=== PATIENT | male | born 1945 | race Caucasian/White ===

== ENCOUNTER 2017-02-11 16:19 | Observation (INO) ==
[2017-02-11] MEDS ORDERED: Aspirin 81 MG TAB.CHEW PO ONE (17:56)
[2017-02-11] MEDS ORDERED: 0.9 % Sodium Chloride 1,000 ML IVC ONE ×2 (17:57)
[2017-02-11 18:37] LABS: Basophils # 0.1 K/mcL (0.0-0.2); Basophils % 0.8 %; Hematocrit 48.9 % (37.5-50.1); Hemoglobin 16.2 g/dL (12.9-16.9); Immature Granulocytes % 0.4 % (0-4); Lymphocytes # 1.1 K/mcL (0.6-4.6); Lymphocytes % 9.9 %; Mean Corpuscular HGB Conc 33.1 g/dL (31.6-35.5); Mean Corpuscular Hemoglobin 28.5 pg (28.0-33.3); Mean Corpuscular Volume 85.9 fL (83.0-100.0); Mean Platelet Volume 10.1 fL (9.4-12.4); Monocytes # 0.9 K/mcL (0.0-1.3); Monocytes % 8.9 %; Neutrophils # 8.5 K/mcL (1.6-8.9); Platelet Count 218 K/mcL (140-400); Red Blood Count 5.69 M/mcL (4.19-5.50); Red Cell Distribution Width 13.9 % (11.5-14.5)
[2017-02-11 18:44] LABS: VBG HCO3 26 mEq/L (21-27); VBG PCO2 48 mmHg (41-51); VBG PH 7.34 pH Units (7.32-7.42); VBG PO2 26 mmHg (25-50)
[2017-02-11 18:57] LABS: Potassium 5.3 mEq/L (3.5-5.1)
[2017-02-11] MEDS ORDERED: Famotidine 20 MG/2 ML VIAL IVP ONE (19:07)
[2017-02-11] MEDS ORDERED: Nitroglycerin 0.4 MG TAB.SUBL SL PRN (19:23)
--- NOTE | 2017-02-11 19:26 | Emergency Department Note ---
Disposition Clinical Impression: Influenza A, Hyperkalemia, Elevated troponin I level, Dehydration Chest pain Qualifiers: Chest pain type: precordial pain Qualified Code(s): R07.2 - Precordial pain Disposition: Admitted As Inpatient Condition: Serious Time of Disposition: 22:00 Chest Pain HPI - General Chief Complaint: ED Chest Pain Stated Complaint: CP/Flu like Symptoms Time Seen by Provider: 02/11/17 17:16 Source: patient Limitations: no limitations Vital Signs Reviewed: Yes Nursing Notes Reviewed: Yes - History of Present Illness HPI Narrative: 71-year-old male who complains of extreme fatigue, generalized weakness and chest pain/chest tightness 2 days. Patient states symptoms came on rapidly and has been unable to take care of himself at home. He has not eaten or drank in that time. Patient states he has felt feverish Severity scale (1-10): 4 - Related Data Home Medications Medication Instructions Recorded Confirmed Allopurinol [Zyloprim] 100 mg PO DAILY 01/20/16 02/11/17 Amlodipine Besylate 10 mg PO DAILY 01/20/16 02/11/17 Aspirin 81 mg PO DAILY 01/20/16 02/11/17 Furosemide [Lasix] 40 mg PO QAM 01/20/16 02/11/17 GlipiZIDE XL (24 HR) [Glucotrol XL] 10 mg PO 0800 01/20/16 02/11/17 Metformin HCl [Glucophage Xr] 750 mg PO DAILY 01/20/16 02/11/17 Omeprazole [PriLOSEC] 40 mg PO DAILY 01/20/16 02/11/17 Pravastatin Sodium [Pravachol] 20 mg PO HS 01/20/16 02/11/17 Telmisartan [Micardis] 80 mg PO DAILY 01/20/16 02/11/17 rOPINIRole [Requip] 1 mg PO HS 01/20/16 02/11/17 Cholecalciferol (Vitamin D3) 5,000 mg PO DAILY 01/18/17 02/11/17 [Vitamin D] Colesevelam HCl [Welchol] 3.75 gm PO DAILY 02/11/17 02/11/17 Exenatide Microspheres [Bydureon 2 mg SQ MO 02/11/17 02/11/17 Pen] Metoprolol XL (24 HR) Succ [Toprol 50 mg PO DAILY 02/11/17 02/11/17 XL] Allergies Allergy/AdvReac Type Severity Reaction Status Date / Time No Known Allergies Allergy Verified 02/11/17 16:30 All systems ED: reviewed and negative except as stated. Review of Systems: As Per HPI Constitutional: Reports: fever ENT ED: Reports: congestion Cardiovascular: Reports: chest pain Respiratory: Reports: cough Musculoskeletal: Reports: myalgia Neurological: Reports: headache Endocrine: Reports: fatigue Chest Pain PMH - Past Medical History Medical history: Reports: coronary artery disease, diabetes, GERD, hypertension , renal disease Surgical history: Reports: orthopedic, other Psychiatric history: Reports: no psych history - Social History Smoking Status: Never smoker Alcohol use: Reports: none Drug use: Reports: none Physical Exam Vital Signs Temperature 98.5 F 02/11/17 16:26 Pulse Rate 120 02/11/17 16:26 Respiratory Rate 20 02/11/17 16:26 Blood Pressure 117/64 02/11/17 16:26 O2 Sat by Pulse Oximetry 95 02/11/17 16:26 Temperature 98.2 F 02/11/17 21:30 Pulse Rate 107 02/11/17 21:30 Respiratory Rate 14 02/11/17 21:30 Blood Pressure 162/85 02/11/17 21:30 O2 Sat by Pulse Oximetry 96 02/11/17 21:30 Oxygen Delivery Oxygen Delivery Room Air 71-year-old male who is alert and oriented 3 but appears lethargic and very weak. Patient has severely dry oral mucosa with crack lips. Patient is in acute distress secondary to chest pain and has shortness of breath. Patient is currently afebrile. Patient is tachycardic at 120 bpm. - General Limitations: no limitations General appearance: alert - Head Head exam: atraumatic, normocephalic, normal inspection - Eye Eye exam: Present: normal appearance, PERRL, EOMI - ENT ENT exam: normal exam, mucous membranes dry - Neck Neck exam: Present: normal inspection, full ROM, trachea midline - Chest Chest inspection: Present: normal inspection, symmetric chest wall rise - Respiratory Respiratory exam: Present: normal lung sounds bilaterally. Absent: respiratory distress, wheezes - Cardiovascular Cardiovascular exam: Present: tachycardia - Abdominal Exam Abdominal exam: Present: soft, Non-Tender. Absent: tenderness, distention, guarding, rebound, rigidity - Extremities Exam Extremities exam: Present: normal inspection, full ROM, normal capillary refill. Absent: tenderness, pedal edema - Back Exam Back exam: Present: normal inspection, full ROM. Absent: tenderness, CVA tenderness (R), CVA tenderness (L) - Neurological Exam Neurological exam: Present: alert, oriented X3 - Skin Skin exam: Present: warm, dry, intact, normal color Course Vital Signs Temperature 98.5 F 02/11/17 16:26 Pulse Rate 120 02/11/17 16:26 Respiratory Rate 20 02/11/17 16:26 Blood Pressure 117/64 02/11/17 16:26 O2 Sat by Pulse Oximetry 95 02/11/17 16:26 Temperature 97.6 F 02/13/17 18:44 Pulse Rate 92 02/13/17 18:44 Respiratory Rate 16 02/13/17 18:44 Blood Pressure 144/81 02/13/17 18:44 O2 Sat by Pulse Oximetry 97 02/13/17 18:44 Oxygen Delivery Oxygen Delivery Room Air Chest Pain - MDM Narrative Medical decision making narrative: Chest pain and fatigue 2 days ago. Concern for ACS/WA, pneumonia, COPD exacerbation, CHF exacerbation. Also keep PE in my differential but less likely at this time. Patient started on fluid hydration for being very dry,. Ordered Chest x-ray shows no evidence of acute cardiopulmonary abnormalities. Patient's heart rate was reduced and chest pain resolved after IV fluid hydration. Patient was given aspirin but did not require nitroglycerin to help reduce pain symptoms. He still has myalgias. Flu swab was taken. Patient has a low sodium and an elevated potassium and troponin. No signs ischemia on EKG which shows sinus tachycardia. Flu swab returned positive for influenza A. Current plan is to have patient. Admitted for ACS rule out and continue fluid hydration. Patient has a history of diabetes does not have DKA. He has a negative urine ketones, beta hydroxybutyric acid is elevated but patient does not have an anion gap and has a normal pH. Patient excess decision for admission. Patient is accepted for admission by hospitalist Dr. Dick - Lab Data Lab results reviewed: Yes I reviewed the patient's lab results. Lab results narrative: Short CBC 02/12/17 02/11/17 Range/Units 00:46 18:25 WBC 8.1 10.6 (4.3-11.1) K/mcL Hgb 13.3 D 16.2 (12.9-16.9) g/dL Hct 40.7 48.9 (37.5-50.1) % Plt Count 177 218 (140-400) K/mcL Neutrophils # 5.9 8.5 (1.6-8.9) K/mcL BMP 02/12/17 02/11/17 Range/Units 00:46 18:25 Sodium 135 L 133 L (136-145) mEq/L Potassium 4.2 5.3 H (3.5-5.1) mEq/L Chloride 104 98 (98-107) mEq/L Carbon Dioxide 22 L 22 L (23-29) mEq/L BUN 34 H 32 H (8-23) mg/dL Creatinine 2.18 H 2.71 H (0.70-1.30) mg/dL Glucose 201 H 314 H (70-105) mg/dL Calcium 8.1 L 9.0 (8.6-10.3) mg/dL Cardiac Enzymes 02/12/17 02/11/17 Range/Units 00:46 18:25 Troponin I 0.05 H* 0.07 H* (< 0.04) ng/mL Urine 02/11/17 Range/Units 19:51 Urine Color Dark Yellow (Yellow) Urine Clarity Turbid A (Clear) Urine pH 5.5 (5.0-8.0) pH Units Ur Specific [place] 1.029 H (1.010-1.025) Urine Protein 100 H (Neg-Trace) mg/dL Urine Glucose (UA) 100 H (Normal) mg/dL Result diagrams: 02/12/17 00:46 02/13/17 05:31 Lab Results 02/11/17 02/11/17 02/11/17 Range/Units 18:25 18:25 18:25 WBC 10.6 (4.3-11.1) K/mcL RBC 5.69 H (4.19-5.50) M/mcL Hgb 16.2 (12.9-16.9) g/dL Hct 48.9 (37.5-50.1) % MCV 85.9 (83.0-100.0) fL MCH 28.5 (28.0-33.3) pg MCHC 33.1 (31.6-35.5) g/dL RDW 13.9 (11.5-14.5) % Plt Count 218 (140-400) K/mcL MPV 10.1 (9.4-12.4) fL Immature Gran % 0.4 (0-4) % Seg Neutrophils % 80.0 % Lymphocytes % 9.9 % Monocytes % 8.9 % Eosinophils % 0.0 % Basophils % 0.8 % Neutrophils # 8.5 (1.6-8.9) K/mcL Lymphocytes # 1.1 (0.6-4.6) K/mcL Monocytes # 0.9 (0.0-1.3) K/mcL Eosinophils # 0.0 (0.0-0.6) K/mcL Basophils # 0.1 (0.0-0.2) K/mcL VBG pH (7.32-7.42) pH Units VBG pCO2 (41-51) mmHg VBG pO2 (25-50) mmHg VBG HCO3 (21-27) mEq/L Sodium 133 L (136-145) mEq/L Potassium 5.3 H (3.5-5.1) mEq/L Chloride 98 (98-107) mEq/L Carbon Dioxide 22 L (23-29) mEq/L BUN 32 H (8-23) mg/dL Creatinine 2.71 H (0.70-1.30) mg/dL Est GFR ( Amer) 28 L (> 60) Est GFR (Non-Af Amer) 23 L (> 60) BUN/Creatinine Ratio 12 (6-26) Glucose 314 H (70-105) mg/dL Calculated Osmolality 295 (280-300) Lactic Acid (0.5-2.2) mmol/L Calcium 9.0 (8.6-10.3) mg/dL Troponin I 0.07 H* (< 0.04) ng/mL Beta-Hydroxybutyric Acd (0.02-0.27) mmol/L Urine Color (Yellow) Urine Clarity (Clear) Urine pH (5.0-8.0) pH Units Ur Specific [place] (1.010-1.025) Urine Protein (Neg-Trace) mg/dL Urine Glucose (UA) (Normal) mg/dL Urine Ketones (Negative) mg/dL Urine Blood (Negative) Urine Nitrite (Negative) Urine Bilirubin (Negative) Urine Urobilinogen (Normal) mg/dL Ur Leukocyte Esterase (Negative) Urine Microscopic RBC (0-3) per hpf Urine Microscopic WBC (0-3) per hpf Ur Squamous Epith Cells (None-Few) per lpf Urine Bacteria (None-Few) per hpf Hyaline Casts (None-Few) per lpf Ur Culture Indicated? (NO) 02/11/17 02/11/17 02/11/17 Range/Units 18:25 18:41 19:09 WBC (4.3-11.1) K/mcL RBC (4.19-5.50) M/mcL Hgb (12.9-16.9) g/dL Hct (37.5-50.1) % MCV (83.0-100.0) fL MCH (28.0-33.3) pg MCHC (31.6-35.5) g/dL RDW (11.5-14.5) % Plt Count (140-400) K/mcL MPV (9.4-12.4) fL Immature Gran % (0-4) % Seg Neutrophils % % Lymphocytes % % Monocytes % % Eosinophils % % Basophils % % Neutrophils # (1.6-8.9) K/mcL Lymphocytes # (0.6-4.6) K/mcL Monocytes # (0.0-1.3) K/mcL Eosinophils # (0.0-0.6) K/mcL Basophils # (0.0-0.2) K/mcL VBG pH 7.34 (7.32-7.42) pH Units VBG pCO2 48 (41-51) mmHg VBG pO2 26 (25-50) mmHg VBG HCO3 26 (21-27) mEq/L Sodium (136-145) mEq/L Potassium (3.5-5.1) mEq/L Chloride (98-107) mEq/L Carbon Dioxide (23-29) mEq/L BUN (8-23) mg/dL Creatinine (0.70-1.30) mg/dL Est GFR ( Amer) (> 60) Est GFR (Non-Af Amer) (> 60) BUN/Creatinine Ratio (6-26) Glucose (70-105) mg/dL Calculated Osmolality (280-300) Lactic Acid 2.0 (0.5-2.2) mmol/L Calcium (8.6-10.3) mg/dL Troponin I (< 0.04) ng/mL Beta-Hydroxybutyric Acd 0.61 H (0.02-0.27) mmol/L Urine Color (Yellow) Urine Clarity (Clear) Urine pH (5.0-8.0) pH Units Ur Specific [place] (1.010-1.025) Urine Protein (Neg-Trace) mg/dL Urine Glucose (UA) (Normal) mg/dL Urine Ketones (Negative) mg/dL Urine Blood (Negative) Urine Nitrite (Negative) Urine Bilirubin (Negative) Urine Urobilinogen (Normal) mg/dL Ur Leukocyte Esterase (Negative) Urine Microscopic RBC (0-3) per hpf Urine Microscopic WBC (0-3) per hpf Ur Squamous Epith Cells (None-Few) per lpf Urine Bacteria (None-Few) per hpf Hyaline Casts (None-Few) per lpf Ur Culture Indicated? (NO) 02/11/17 Range/Units 19:51 WBC (4.3-11.1) K/mcL RBC (4.19-5.50) M/mcL Hgb (12.9-16.9) g/dL Hct (37.5-50.1) % MCV (83.0-100.0) fL MCH (28.0-33.3) pg MCHC (31.6-35.5) g/dL RDW (11.5-14.5) % Plt Count (140-400) K/mcL MPV (9.4-12.4) fL Immature Gran % (0-4) % Seg Neutrophils % % Lymphocytes % % Monocytes % % Eosinophils % % Basophils % % Neutrophils # (1.6-8.9) K/mcL Lymphocytes # (0.6-4.6) K/mcL Monocytes # (0.0-1.3) K/mcL Eosinophils # (0.0-0.6) K/mcL Basophils # (0.0-0.2) K/mcL VBG pH (7.32-7.42) pH Units VBG pCO2 (41-51) mmHg VBG pO2 (25-50) mmHg VBG HCO3 (21-27) mEq/L Sodium (136-145) mEq/L Potassium (3.5-5.1) mEq/L Chloride (98-107) mEq/L Carbon Dioxide (23-29) mEq/L BUN (8-23) mg/dL Creatinine (0.70-1.30) mg/dL Est GFR ( Amer) (> 60) Est GFR (Non-Af Amer) (> 60) BUN/Creatinine Ratio (6-26) Glucose (70-105) mg/dL Calculated Osmolality (280-300) Lactic Acid (0.5-2.2) mmol/L Calcium (8.6-10.3) mg/dL Troponin I (< 0.04) ng/mL Beta-Hydroxybutyric Acd (0.02-0.27) mmol/L Urine Color Dark Yellow (Yellow) Urine Clarity Turbid A (Clear) Urine pH 5.5 (5.0-8.0) pH Units Ur Specific [place] 1.029 H (1.010-1.025) Urine Protein 100 H (Neg-Trace) mg/dL Urine Glucose (UA) 100 H (Normal) mg/dL Urine Ketones Negative (Negative) mg/dL Urine Blood Negative (Negative) Urine Nitrite Negative (Negative) Urine Bilirubin Moderate H (Negative) Urine Urobilinogen Normal (Normal) mg/dL Ur Leukocyte Esterase Negative (Negative) Urine Microscopic RBC 0-3 (0-3) per hpf Urine Microscopic WBC 15-30 H (0-3) per hpf Ur Squamous Epith Cells Many H (None-Few) per lpf Urine Bacteria None Seen (None-Few) per hpf Hyaline Casts Moderate H (None-Few) per lpf Ur Culture Indicated? NO (NO) - Radiology Data Radiology results reviewed: Yes I reviewed the patient's radiology results. Chest X-Ray 02/11/17 16:31 IMPRESSION: No evidence for acute cardiopulmonary process. D/ / 02/11/2017 17:01:49 John Orlando MD / luisa Interpreting Provider: John Orlando MD - EKG Data EKG attestation: Yes I reviewed and interpreted this EKG. EKG shows normal: sinus rhythm Rate: tachycardia When compared to previous EKG there are: previous EKG unavailable Heart Score - Score History: Moderately Suspicious EKG: Non Specific repolarisation Disturbance Age: Greater than 65 Risk Factors: Equal/Greater than 3 risk factor or history of atherosclerotic disease Troponin: 1-3x normal limit HEART Score Total: 7 Attestation Statement - Attestation Attestation: I examined this patient and my medical decision-making was reviewed with the Resident Physician, Dr. Saucedo. I agree with the documented findings, disposition and treatment plan as described except to the extent set forth below. Pt is a 71 yo wm, hx HTN, DM, CAD, who presents to the ER with c/o gen weakness which has worsened over the past 2 days, to the point that pt having difficulty ambulating and dec PO intake. Pt c/o gen myalgias, but denies any URI sxs/ cough. Pt with subj F/C, and otherwise denies any other assocd sxs. Pt mentioned chest tightness to my resident, but denies this to me. I agree with pt's PE findings as documented. Pt tachycardic, but stable BP on arrival. Pt clinically appears dehydrated with dry MM/lips. Began IV hydration on arrival. EKG shows sinus tach, no ischemia. Labs show acute on chronic KI, likely pre-renal from dehydration, and elev trop. Pt with positive influenza A. Likely cause of pt's sxs. CXR wnl. Continued IVF, and will start pt on tamiflu. Will admit for serial enzymes, considering pts risk factors for CAD, currently CP free. No resp distress during ED course. O2 sats wnl. D/W hospitalist who accepted pt for admission.
[2017-02-11 20:02] LABS: Bilirubin,Urine Moderate (Negative); Blood,Urine Negative (Negative); Clarity,Urine Turbid (Clear); Color,Urine Dark Yellow (Yellow); Glucose,Urine (UA) 100 mg/dL (Normal); Ketones,Urine Negative (Negative); Leukocyte Esterase,Urine Negative (Negative); Nitrite,Urine Negative (Negative); PH,Urine 5.5 pH Units (5.0-8.0); Protein,Urine 100 mg/dL (Neg-Trace); Specific Gravity,Urine 1.029 (1.010-1.025); Urobilinogen,Urine Normal (Normal)
[2017-02-11 20:04] LABS: Bacteria,Urine None Seen per hpf (None-Few); RBC,Urine 0-3 per hpf (0-3); Squamous Epithelial Cell,Urine Many per lpf (None-Few); WBC,Urine 15-30 per hpf (0-3)
[2017-02-11 20:15] LABS: Hyaline Casts,Urine Moderate per lpf (None-Few)
[2017-02-11] MEDS ORDERED: Acetaminophen 325 MG TABLET PO PRN (21:16)
[2017-02-11] MEDS ORDERED: Ondansetron 4 MG/2 ML VIAL IVP PRN (21:16)
[2017-02-11] MEDS ORDERED: Naloxone 0.4 MG/ML INJ IVP PRN (21:16)
[2017-02-11] MEDS ORDERED: D5% in Water 1,000 ML IVC PRN (21:18)
[2017-02-11] MEDS ORDERED: Dextrose Gel 15 GM/37.5 ML TUBE PO PRN ×2 (21:18)
[2017-02-11] MEDS ORDERED: *HR* Dextrose 50 % in Water (Syg) 50 ML SYRINGE IVP PRN (21:18)
--- NOTE | 2017-02-11 21:25 | Internal Med History&Physical ---
Date of Encounter: 02/11/17 Time of Encounter: 21:00 Assessment and Plan (1) Influenza A Current visit: Yes Status: Acute Presents with Flu like symptoms; rapid Influenza Ag test was positive for Flu A ; chest XRay reviewed independently- no infiltrates, clear lung chacko. Start IV hydration, Tamiflu, supplemental O2 and supportive care; (2) LEEANN (acute kidney injury) Current visit: Yes Status: Acute Acute on chronic renal failure, due to prerenal azotemia from dehydration and viral syndrome. Continue IV hydration, hold diuretic/ARB, continue to monitor serum creatinine closely; dose meds per current GFR; (3) Elevated troponin Current visit: Yes Status: Acute patient reports chest tightness, could be due to viral infection; will continue Telemetry monitoring and cycle Troponins; continue ASA, statin, beta jacinta; (4) Diabetes mellitus Current visit: Yes Status: Chronic noted to have uncontrolled DM with severe gastroparesis noted on recent EGD; check HbA1C; no e/o- DKA. Accuchek blood glucose monitoring with basal bolus insulin regimen; diabetic diet; Qualifiers: Diabetes mellitus type: type 2 Diabetes mellitus complication status: with kidney complications Diabetes mellitus complication detail: with chronic kidney disease Diabetes mellitus intermediate card tender insulin use: without intermediate card tender use Chronic kidney disease stage: stage 3 (moderate) Qualified Code(s): E11.22 - Type 2 diabetes mellitus with diabetic chronic kidney disease; N18.3 - Chronic kidney disease, stage 3 (moderate); N18.3 - Chronic kidney disease, stage 3 (moderate) (5) Essential hypertension Current visit: Yes Status: Chronic BP acceptable; continue beta jacinta and Norvasc; hold Valsartan; (6) CKD (chronic kidney disease) Current visit: Yes Status: Chronic Qualifiers: Chronic kidney disease stage: stage 3 (moderate) Qualified Code(s): N18.3 - Chronic kidney disease, stage 3 (moderate) Internal Medicine - H&P: HPI Chief complaint: Weakness, malaise Admitted From: Emergency Dept Plans for Post Hospital Care: Home History of present illness: Mr. Leal is a 71 year old male with h/o- HTN, DM presents with c/o- generalized weakness, malaise since 3-4 days. He reports feeling well until about 3 days ago when he started feeling very weak with malaise and poor appetite, dizziness , diarrhea, subjective chills and fever. He feels dehydrated. He reports dry cough and chest tightness intermittently but no shortness of breath, palpitations, leg swelling. His has a cough. He received Influenza vaccine this season. Past Med Surg Social Fam HX - Past Medical History Medical history: diabetes, GERD, hypertension, renal disease Psychiatric history: no psych history - Past Surgical History Surgical History: orthopedic, other (right shoulder arthroscopic surgery), other (renal stone removal, cervical fusion surgery) - Social History Smoking Status: Never smoker Smokeless Tobacco Status: No Alcohol use: none Drug use: none Occupational status: retired Current living situation: Home, With Family Activity Level: Independent ambulation Recent Out of Country Travel Within the Last 8 Weeks: No Exposure or Possible Exposure to Illness During Travel: No - Family History Mother Hx Family Endocrine Disorder: Yes (DM) Internal Medicine - H&P: Meds Allopurinol [Zyloprim] 100 mg PO DAILY 01/20/16 [History] Amlodipine Besylate 10 mg PO DAILY 01/20/16 [History] Aspirin 81 mg PO DAILY 01/20/16 [History] Furosemide [Lasix] 40 mg PO QAM 01/20/16 [History] GlipiZIDE XL (24 HR) [Glucotrol XL] 10 mg PO 0800 01/20/16 [History] Metformin HCl [Glucophage Xr] 750 mg PO DAILY 01/20/16 [History] Omeprazole [PriLOSEC] 40 mg PO DAILY 01/20/16 [History] Pravastatin Sodium [Pravachol] 20 mg PO HS 01/20/16 [History] Telmisartan [Micardis] 80 mg PO DAILY 01/20/16 [History] rOPINIRole [Requip] 1 mg PO HS 01/20/16 [History] Cholecalciferol (Vitamin D3) [Vitamin D] 5,000 mg PO DAILY 01/18/17 [History] Colesevelam HCl [Welchol] 3.75 gm PO DAILY 02/11/17 [History] Exenatide Microspheres [Bydureon Pen] 2 mg SQ MO 02/11/17 [History] Metoprolol XL (24 HR) Succ [Toprol XL] 50 mg PO DAILY 02/11/17 [History] 3 Allergy/AdvReac Type Severity Reaction Status Date / Time No Known Allergies Allergy Verified 02/11/17 16:30 All Systems PM: A 10-system review of systems was performed and is negative for pertinent findings except as documented above in the HPI. - Constitutional Constitutional: anorexia, chills, fatigue, malaise, weakness - EENT Eyes: no change in vision, no discharge, no pain, no photophobia Ears: no ear discharge, no ear pain, no tinnitus Nose, mouth and throat: no dysphagia, no nasal discharge, no neck pain, no sore throat - Cardiovascular Cardiovascular ROS IM: chest pain - Respiratory Respiratory: cough - Gastrointestinal Gastrointestinal: diarrhea - Musculoskeletal Musculoskeletal ROS IM: muscle weakness, no numbness, no tingling - Integumentary Integumentary IM: no rash, no unusual bruising - Neurological Neurological ROS: no confusion, no convulsions, no focal weakness, no numbness, no tingling, no tremor(s) - Hematologic/Lymphatic Hematologic/Lymphatic: no easy bruising - Constitutional Vitals: Temp Pulse Resp BP Pulse Ox 98.5 F 107 18 141/84 97 02/11/17 16:26 02/11/17 19:49 02/11/17 19:49 02/11/17 19:49 02/11/17 19:49 General appearance: Present: A&O X 3, obese, answers questions appropriately - Respiratory Respiratory exam: Present: CTAB, rhonchi (anterior B/L rhonchi). Absent: accessory muscle use, rales, wheezes - Cardiovascular Cardiovascular exam: Present: RRR, +S1, +S2, tachycardia. Absent: diastolic murmur, gallop, rubs, systolic murmur - GI/Abdominal GI/Abdominal exam: Present: normal bowel sounds, soft (obese), no peritoneal signs. Absent: distended, tenderness - Extremities Exam Extremities exam: Present: full ROM, warm, radial pulses palpable and symmetrical. Absent: calf tenderness, cyanotic, pedal edema - Neurological Exam Neurological exam: Present: CN II-XII intact, oriented X3, no focal deficits. Absent: pronater drift, facial droop, speech deficit Internal Med - H&P Results - Labs CBC & Chem 7: 02/11/17 18:25 02/11/17 18:25 - EKG Data -: EKG Interpreted by Myself (IVCD, RAD) EKG shows normal: sinus rhythm Rate: tachycardia
[2017-02-11] MEDS: Insulin LISPRO 300 UNITS/3 ML VIAL SQ SCH (22:46)
[2017-02-11] MEDS: rOPINIRole 1 MG TABLET PO SCH (22:51)
[2017-02-11] MEDS: Oseltamivir Phosphate 30 MG CAPSULE PO SCH (22:51)
[2017-02-11] MEDS: 0.9 % Sodium Chloride 1,000 ML IVC SCH (22:52)
[2017-02-12 01:05] LABS: Basophils % 0.5 %; Hematocrit 40.7 % (37.5-50.1); Immature Granulocytes % 0.5 % (0-4); Lymphocytes # 1.3 K/mcL (0.6-4.6); Lymphocytes % 16.2 %; Mean Corpuscular HGB Conc 32.7 g/dL (31.6-35.5); Mean Corpuscular Hemoglobin 28.2 pg (28.0-33.3); Mean Corpuscular Volume 86.4 fL (83.0-100.0); Mean Platelet Volume 10.2 fL (9.4-12.4); Monocytes # 0.9 K/mcL (0.0-1.3); Monocytes % 10.6 %; Neutrophils # 5.9 K/mcL (1.6-8.9); Platelet Count 177 K/mcL (140-400); Red Blood Count 4.71 M/mcL (4.19-5.50); Red Cell Distribution Width 13.7 % (11.5-14.5); Segmented Neutrophils % 72.2 %
[2017-02-12 01:13] LABS: Hemoglobin A1C 8.1 %
[2017-02-12 01:14] LABS: Hemoglobin 13.3 g/dL (12.9-16.9)
[2017-02-12 01:46] LABS: Calcium 8.1 mg/dL (8.6-10.3); Chol/HDL Ratio 3.6 (0-4.9); Potassium 4.2 mEq/L (3.5-5.1)
[2017-02-12] MEDS: *HR* Heparin 5,000 UNIT/ML VIAL SQ SCH ×2 (06:17→17:28)
[2017-02-12] MEDS: Oseltamivir Phosphate 30 MG CAPSULE PO SCH (08:51)
[2017-02-12] MEDS: Aspirin 81 MG TAB.CHEW PO SCH (08:52)
[2017-02-12] MEDS: Metoprolol XL (24 HR) Succ 50 MG TAB.ER.24H PO SCH (08:52)
[2017-02-12] MEDS: 0.9 % Sodium Chloride 1,000 ML IVC SCH (08:53)
[2017-02-12] MEDS: amLODIPine 5 MG TABLET PO SCH (08:53)
[2017-02-12] MEDS: Insulin LISPRO 300 UNITS/3 ML VIAL SQ SCH ×4 (08:54→20:58)
--- NOTE | 2017-02-12 09:19 | Electrocardiograph Report ---
[address] [address] Test Date: 2017-02-11 Pat Name: Sudhakar Leal Department: [id number] Room: 3B Gender: [employer] Teacher: : 1945 Requested By: Glenna See Order Number: [id number] Reading MD: Ling Campos Measurements Intervals [place] Rate: 103 P: 44 DE: 213 QRS: 108 QRSD: 144 T: -6 QT: 367 QTc: 427 Interpretive Statements SINUS TACHYCARDIA RIGHT BUNDLE BRANCH BLOCK Electronically Signed On 02-12-2017 9:17:29 EST by Ling Campos
--- NOTE | 2017-02-12 15:38 | Internal Med Progress Note ---
Date of Encounter: 02/12/17 Time of Encounter: 15:35 - Assessment and plan (1) Influenza A Current Visit: Yes Status: Acute Assessment and plan: Presents with Flu like symptoms; rapid Influenza Ag positive for Flu A. CXR non- acute. IV hydration, Tamiflu, supplemental O2 and supportive care (2) LEEANN (acute kidney injury) Current Visit: Yes Status: Acute Assessment and plan: has known CKD. Now with pre-renal LEEANN on CKD likely secondary to dehydration and viral syndrome. Avoid nephrotoxic agents as possible. IV hydration, hold diuretic/ARB. Repeat renal function improving. (3) Elevated troponin Current Visit: Yes Status: Acute Assessment and plan: patient reported chest tightness prior to arrival; now resolved. Troponin peaked at 0.07 and trended down. EKG without acute ST changes. No known CAD. 2 year monitor on telemetry. Echo and stress test pending. Continue ASA, statin, beta jacinta; (4) Diabetes mellitus Current Visit: Yes Status: Chronic Assessment and plan: per hx. Hgb A1c 8.1%. Blood sugars and 300s on arrival, no evidence of DKA. Holding home oral hypoglycemics. Blood sugar improved with SSRI. Monitor blood sugar and titrate PRN Qualifiers: Diabetes mellitus type: type 2 Diabetes mellitus complication status: with kidney complications Diabetes mellitus complication detail: with chronic kidney disease Diabetes mellitus halfway insulin use: without halfway use Chronic kidney disease stage: stage 3 (moderate) Qualified Code(s): E11.22 - Type 2 diabetes mellitus with diabetic chronic kidney disease; N18.3 - Chronic kidney disease, stage 3 (moderate); N18.3 - Chronic kidney disease, stage 3 (moderate) (5) Essential hypertension Current Visit: Yes Status: Chronic Assessment and plan: per hx. BP variable but acceptable. Continue home BP medication. Monitor BP and titrate PRN (6) DVT prophylaxis Current Visit: Yes Status: Acute Assessment and plan: heparin - Subjective Interval history: Seen and examined at bedside, patient is new to me. Information obtained from chart review and patient report. Says he feels a little better but still weak and tired. No chest pain, no SOB. Says he has been eating and drinking - Constitutional Vitals: Temp Pulse Resp BP Pulse Ox 98.3 F 78 18 154/84 96 02/12/17 15:17 02/12/17 15:17 02/12/17 15:17 02/12/17 15:17 02/12/17 15:17 General appearance: Present: A&O X 3, obese, answers questions appropriately - Head Head exam: Present: atraumatic, normocephalic - Eye Eye exam: Present: PERRL, conjuntiva pink, sclera anicteric Pupils: Present: PERRL - Neck Neck exam general surgery: Present: supple, trachea midline. Absent: lymphadenopathy - Respiratory Respiratory exam: Present: CTAB. Absent: accessory muscle use, rales, rhonchi, wheezes - Cardiovascular Cardiovascular exam: Present: RRR, +S1, +S2. Absent: diastolic murmur, gallop, rubs, systolic murmur - GI/Abdominal GI/Abdominal exam: Present: normal bowel sounds, soft, no peritoneal signs. Absent: distended, tenderness - Extremities Exam Extremities exam: Present: warm, radial pulses palpable and symmetrical. Absent : calf tenderness, cyanotic, pedal edema - Neurological Exam Neurological exam: Present: CN II-XII intact, oriented X3, no focal deficits. Absent: pronater drift, facial droop, speech deficit - Skin Skin exam: Present: dry, intact Internal Medicine: Result - Labs CBC & Chem 7: 02/12/17 00:46 02/12/17 00:46 Labs: Short CBC 02/12/17 Range/Units 00:46 WBC 8.1 (4.3-11.1) K/mcL Hgb 13.3 D (12.9-16.9) g/dL Hct 40.7 (37.5-50.1) % Plt Count 177 (140-400) K/mcL Neutrophils # 5.9 (1.6-8.9) K/mcL BMP 02/12/17 00:46 Sodium 135 L Potassium 4.2 Chloride 104 Carbon Dioxide 22 L BUN 34 H Creatinine 2.18 H Glucose 201 H Calcium 8.1 L Cardiac Enzymes 02/12/17 02/12/17 02/12/17 Range/Units 00:46 06:43 13:19 Troponin I 0.05 H* 0.05 H* 0.04 H* (< 0.04) ng/mL Consult Discharge Plan - Plan Referrals: Gray Beck MD [Primary Care Provider] -
--- NOTE | 2017-02-12 19:11 | Electrocardiograph Report ---
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
[2017-02-12] MEDS ORDERED: Perflutren Lipid Microsphere 1.3 ML in 0.9 % Sodium Chloride 8.7 ML IVP ONE (21:58)
[2017-02-12] MEDS: rOPINIRole 1 MG TABLET PO SCH (22:22)
[2017-02-13] MEDS: *HR* Heparin 5,000 UNIT/ML VIAL SQ SCH ×2 (05:33→17:32)
[2017-02-13 06:31] LABS: Calcium 7.9 mg/dL (8.6-10.3); Potassium 3.8 mEq/L (3.5-5.1)
[2017-02-13] MEDS: Insulin LISPRO 300 UNITS/3 ML VIAL SQ SCH ×4 (09:04→20:47)
[2017-02-13] MEDS ORDERED: Regadenoson 0.4 MG/5 ML SYRINGE IVP ONE (09:33)
[2017-02-13] MEDS: amLODIPine 5 MG TABLET PO SCH (11:35)
[2017-02-13] MEDS: Aspirin 81 MG TAB.CHEW PO SCH (11:36)
[2017-02-13] MEDS: Metoprolol XL (24 HR) Succ 50 MG TAB.ER.24H PO SCH (11:36)
[2017-02-13] MEDS: Oseltamivir Phosphate 30 MG CAPSULE PO SCH (11:36)
--- NOTE | 2017-02-13 14:02 | Internal Med Progress Note ---
Date of Encounter: 02/13/17 Time of Encounter: 14:00 - Assessment and plan (1) Influenza A Current Visit: Yes Status: Acute Assessment and plan: Presents with Flu like symptoms; rapid Influenza Ag positive for Flu A. CXR non- acute. IV hydration, Tamiflu, supplemental O2 and supportive care (2) LEEANN (acute kidney injury) Current Visit: Yes Status: Acute Assessment and plan: has known CKD. Now with pre-renal LEEANN on CKD likely secondary to dehydration and viral syndrome. Renal function improved to baseline with IV hydration and holding home ARB/diuretic. Resume ARB at lower dose. If renal function remains stable then restart Lasix 02/14. (3) Elevated troponin Current Visit: Yes Status: Acute Assessment and plan: patient reported chest tightness prior to arrival; now resolved. Troponin peaked at 0.07 and trended down. EKG without acute ST changes. No known CAD. TTE with EF 60%, mild diastolic dysfunction. Stress test pending Continue ASA, statin, beta jacinta; (4) Constipation Current Visit: Yes Status: Acute Assessment and plan: last BM 02/07/17; ABD soft. Add aggressive bowel regimen. Qualifiers: Constipation type: unspecified constipation type Qualified Code(s): K59.00 - Constipation, unspecified (5) Diabetes mellitus Current Visit: Yes Status: Chronic Assessment and plan: per hx. Hgb A1c 8.1%. Blood sugars and 300s on arrival, no evidence of DKA. Holding home oral hypoglycemics. Blood sugar improved with SSI. Monitor blood sugar and titrate PRN Qualifiers: Diabetes mellitus type: type 2 Diabetes mellitus complication status: with kidney complications Diabetes mellitus complication detail: with chronic kidney disease Diabetes mellitus correction insulin use: without terminal block assembler use Chronic kidney disease stage: stage 3 (moderate) Qualified Code(s): E11.22 - Type 2 diabetes mellitus with diabetic chronic kidney disease; N18.3 - Chronic kidney disease, stage 3 (moderate); N18.3 - Chronic kidney disease, stage 3 (moderate) (6) Essential hypertension Current Visit: Yes Status: Chronic Assessment and plan: per hx. BP variable but acceptable. Continue home BP medication. Monitor BP and titrate PRN (7) DVT prophylaxis Current Visit: Yes Status: Acute Assessment and plan: heparin - Subjective Interval history: Seen and examined at bedside. Still feels weak and tired, no CP or SOB. He also reports constipation, last BM a week ago. No ABD pain, no N.V - Constitutional Vitals: Temp Pulse Resp BP Pulse Ox 97.7 F 79 17 141/90 97 02/13/17 11:02 02/13/17 11:02 02/13/17 11:02 02/13/17 11:02 02/13/17 11:02 General appearance: Present: A&O X 3, morbidly obese, obese, answers questions appropriately - Head Head exam: Present: atraumatic, normocephalic - Eye Eye exam: Present: PERRL, conjuntiva pink, sclera anicteric Pupils: Present: PERRL - Neck Neck exam general surgery: Present: supple, trachea midline. Absent: lymphadenopathy - Respiratory Respiratory exam: Present: CTAB. Absent: accessory muscle use, rales, rhonchi, wheezes - Cardiovascular Cardiovascular exam: Present: RRR, +S1, +S2. Absent: diastolic murmur, gallop, rubs, systolic murmur - GI/Abdominal GI/Abdominal exam: Present: normal bowel sounds, soft, no peritoneal signs. Absent: distended, tenderness - Extremities Exam Extremities exam: Present: warm, radial pulses palpable and symmetrical. Absent : calf tenderness, cyanotic, pedal edema - Neurological Exam Neurological exam: Present: CN II-XII intact, oriented X3, no focal deficits. Absent: pronater drift, facial droop, speech deficit - Skin Skin exam: Present: dry, intact Internal Medicine: Result - Labs CBC & Chem 7: 02/12/17 00:46 02/13/17 05:31 Labs: BMP 02/13/17 05:31 Sodium 136 Potassium 3.8 Chloride 106 Carbon Dioxide 25 BUN 23 Creatinine 1.46 H Glucose 119 H Calcium 7.9 L Cardiac Enzymes 02/13/17 Range/Units 11:14 Troponin I 0.04 H* (< 0.04) ng/mL Consult Discharge Plan - Plan Referrals: Gray Beck MD [Primary Care Provider] - (Web Request in on 02/12/2017)
[2017-02-13] MEDS: Sennosides/Docusate Sodium TABLET PO SCH ×2 (14:26→20:13)
[2017-02-13] MEDS: rOPINIRole 1 MG TABLET PO SCH (20:13)
[2017-02-14] MEDS: *HR* Heparin 5,000 UNIT/ML VIAL SQ SCH (05:47)
[2017-02-14 05:59] LABS: Calcium 8.3 mg/dL (8.6-10.3); Potassium 3.9 mEq/L (3.5-5.1)
[2017-02-14] MEDS: Insulin LISPRO 300 UNITS/3 ML VIAL SQ SCH ×2 (08:27→12:43)
[2017-02-14] MEDS: amLODIPine 5 MG TABLET PO SCH (08:50)
[2017-02-14] MEDS: Aspirin 81 MG TAB.CHEW PO SCH (08:50)
[2017-02-14] MEDS: Metoprolol XL (24 HR) Succ 50 MG TAB.ER.24H PO SCH (08:50)
[2017-02-14] MEDS: Oseltamivir Phosphate 30 MG CAPSULE PO SCH (08:50)
[2017-02-14] MEDS: Sennosides/Docusate Sodium TABLET PO SCH (08:50)
[2017-02-14 12:35] VITALS: BP 151/74
--- NOTE | 2017-02-14 13:40 | Discharge Summary ---
Date of Encounter: 02/14/17 Time of Encounter: 13:38 - Discharge Diagnosis (1) Influenza A Priority: Primary Status: Acute Comments: presented with Flu like symptoms; rapid Influenza Ag positive for Flu A. CXR non -acute. Symptoms improved with supportive care with IV hydration and supplemental O2 and Tamiflu. Continue Tamiflu to complete 5 day course. (2) LEEANN (acute kidney injury) Priority: Primary Status: Acute Comments: has known CKD. Now with pre-renal LEEANN on CKD likely secondary to dehydration and viral syndrome in combination with home ARB/diuretic. Renal function improved to baseline with IV hydration and holding home ARB/diuretic. Home ARB resumed at half dose once renal function returned to baseline. Discharge home on half dose of ARB and Lasix until evaluated by nephrology. (3) Elevated troponin Priority: Primary Status: Acute Comments: patient reported chest tightness prior to arrival; resolved without intervention. Troponin peaked at 0.07 and trended down. No known CAD. EKG without acute ST changes. TTE with EF 60%, mild diastolic dysfunction. Stress test negative for infarct or ischemia. Continue home ASA, statin, beta jacinta; (4) Constipation Priority: Primary Status: Resolved Comments: resolved with aggressive bowel regimen. KUB negative for obstruction. Qualifiers: Constipation type: unspecified constipation type Qualified Code(s): K59.00 - Constipation, unspecified (5) Diabetes mellitus Priority: Secondary Status: Chronic Comments: per hx. Blood sugars controlled. Continue home diabetes medication regimen Qualifiers: Diabetes mellitus type: type 2 Diabetes mellitus complication status: with kidney complications Diabetes mellitus complication detail: with chronic kidney disease Diabetes mellitus senior care insulin use: without email administrator use Chronic kidney disease stage: stage 3 (moderate) Qualified Code(s): E11.22 - Type 2 diabetes mellitus with diabetic chronic kidney disease; N18.3 - Chronic kidney disease, stage 3 (moderate); N18.3 - Chronic kidney disease, stage 3 (moderate) (6) Essential hypertension Priority: Secondary Status: Chronic Comments: BP variable but accepatble. Home ARB initially held with worsening renal function. Resumed at half dose with improvement and BP. Continue lower dose at discharge until evaluated by nephrology. - Discharge Medications Prescriptions: Furosemide [Lasix] 20 mg PO QAM #30 tablet Oseltamivir Phosphate [Tamiflu] 30 mg PO DAILY #3 capsule Telmisartan [Micardis] 40 mg PO DAILY #30 tablet Home Medications: Allopurinol [Zyloprim] 100 mg PO DAILY 01/20/16 [History] Amlodipine Besylate 10 mg PO DAILY 01/20/16 [History] Aspirin 81 mg PO DAILY 01/20/16 [History] GlipiZIDE XL (24 HR) [Glucotrol XL] 10 mg PO 0800 01/20/16 [History] Metformin HCl [Glucophage Xr] 750 mg PO DAILY 01/20/16 [History] Omeprazole [PriLOSEC] 40 mg PO DAILY 01/20/16 [History] Pravastatin Sodium [Pravachol] 20 mg PO HS 01/20/16 [History] rOPINIRole [Requip] 1 mg PO HS 01/20/16 [History] Cholecalciferol (Vitamin D3) [Vitamin D3] 5,000 mg PO DAILY 01/18/17 [History] Colesevelam HCl [Welchol] 3.75 gm PO DAILY 02/11/17 [History] Exenatide Microspheres [Bydureon Pen] 2 mg SQ MO 02/11/17 [History] Metoprolol XL (24 HR) Succ [Toprol Xl] 50 mg PO DAILY 02/11/17 [History] Furosemide [Lasix] 20 mg PO QAM #30 tablet 02/14/17 [Rx] Oseltamivir Phosphate [Tamiflu] 30 mg PO DAILY #3 capsule 02/14/17 [Rx] Telmisartan [Micardis] 40 mg PO DAILY #30 tablet 02/14/17 [Rx] Allergies/Adverse Reactions: 3 Allergy/AdvReac Type Severity Reaction Status Date / Time No Known Allergies Allergy Verified 02/11/17 16:30 Procedures/tests Complete & Pending: Procedures Performed prior 72 hours Category Date Time Status NM cary perf SPECT multi [NM] Routine Exams 02/12/17 15:46 Taken EV echocardiogram w enhance Routine Y 02/12/17 14:48 Completed SP pharm nuclear stress Routine Y 02/13/17 08:00 Completed Date of admission: 02/11/17 20:40 Primary care physician: Gray Beck MD Discharging clinician: Maida Garcia Anticipated date of discharge: 02/14/17 - Patient Status Disposition: Home, Self-Care Condition: Good Functional capacity at discharge: uses cane/walker Overall status at discharge: patient is back to baseline - Discharge Instructions Instructions: Oseltamivir (By mouth), Influenza (DC) Follow Up With: Gray Beck MD [Primary Care Provider] - (Web Request in on 02/12/2017) Jaime Jarrell DO [Partnered Physician] - (Please call and make an appt within in 1 week) - Diet and Activity Activity: increase activity as tolerated Diet: diabetic diet, low fat, low cholesterol Interval History: Seen and examined at bedside; says he feels overall better and would likle to go home today. Still a little weak but significantly improved. No CP or SOB, no fevers or chills Hospital course: See assessment and plan for hospital course - Time Spent with Patient Total time spent providing and/or coordinating discharge services: - Constitutional Vitals: Temp Pulse Resp BP Pulse Ox 98.1 F 76 16 151/74 98 02/14/17 12:34 02/14/17 12:34 02/14/17 12:34 02/14/17 12:34 02/14/17 12:34 General appearance: Present: A&O X 3, morbidly obese, obese, answers questions appropriately - Head Head exam: Present: atraumatic, normocephalic - Eye Eye exam: Present: PERRL, conjuntiva pink, sclera anicteric Pupils: Present: PERRL - Neck Neck exam general surgery: Present: supple, trachea midline. Absent: lymphadenopathy - Respiratory Respiratory exam: Present: CTAB. Absent: accessory muscle use, rales, rhonchi, wheezes - Cardiovascular Cardiovascular exam: Present: RRR, +S1, +S2. Absent: diastolic murmur, gallop, rubs, systolic murmur - GI/Abdominal GI/Abdominal exam: Present: normal bowel sounds, soft, no peritoneal signs. Absent: distended, tenderness - Extremities Exam Extremities exam: Present: warm, radial pulses palpable and symmetrical. Absent : calf tenderness, cyanotic, pedal edema - Neurological Exam Neurological exam: Present: CN II-XII intact, oriented X3, no focal deficits. Absent: pronater drift, facial droop, speech deficit - Skin Skin exam: Present: dry, intact
== END 2017-02-14 15:40 | disposition home or self-care (01) ==
LOC: 3BNU 16:19 → EMEROO 16:19 → 3BNU 21:17
PROVIDERS: ADMIT Internal Medicine Hematology & Oncology; ATTEND Registered Nurse